=== PATIENT | male | born 1985 ===

== ENCOUNTER 2017-02-18 17:09 | Observation (INO) | payer SELFPAY ==
--- NOTE | 2017-02-18 17:34 | ED PDOC ---
HPI: Psych/Substance Abuse Time Seen by Provider: 02/18/17 17:16 Chief Complaint (Nursing): Alcohol Ingestion Chief Complaint (Provider): Alcohol Ingestion ED Caveat: Intoxicated History Per: Patient, EMS History/Exam Limitations: intoxication Suicide/Self Injury Attempted (Context): None Modifying Factor(s): Alcohol Additional Complaint(s): 31 year old brought in by EMS presents to ED due to alcohol intoxication and has an unknown past medical history. EMS states bystander called 911 after finding patient publicly intoxicated and unable to ambulate on his own. Patient admits to drinking and points to his head when ask about pain. PCP: Unknown Past Medical History Reviewed: Nursing Documentation, Vital Signs, Unable To Obtain Vital Signs: Last Vital Signs Temp 97.7 F 02/18/17 17:10 Pulse 77 02/18/17 17:10 Resp 18 02/18/17 17:10 BP 126/94 H 02/18/17 17:10 Pulse Ox 98 02/18/17 17:10 - Family History Family History: States: No Known Family Hx - Social History Alcohol: > 2 Drinks/Day - Allergies Allergies/Adverse Reactions: Allergies Allergy/AdvReac Type Severity Reaction Status Date / Time No Known Allergies Allergy Verified 02/18/17 17:10 Review of Systems Review Of Systems: ROS cannot be obtained secondary to pt's inabilty to answer questions. (due to alcohol intoxication) Physical Exam - Reviewed Nursing Documentation Reviewed: Yes Vital Signs Reviewed: Yes - Physical Exam Appears: Positive for: Non-toxic Neurologic/Psych: Negative for: Alert, Oriented - Laboratory Results Result Diagrams: 02/18/17 17:38 02/18/17 17:38 - ECG O2 Sat by Pulse Oximetry: 98 (RA) Pulse Ox Interpretation: Normal Medical Decision Making Medical Decision Makin Initial impression: alcohol intoxication, head injury Initial plan: * CT CERVICAL SPINE * CT HEAD * EtOH serum * Labs * UDrug screen * Finger stick * ED OBS ADMISSION Scribe Attestation: Documented by Maria L Medina, acting as a scribe for Miguelito De Paz PA-C. Provider Scribe Attestation: All medical record entries made by the Scribe were at my direction and personally dictated by me. I have reviewed the chart and agree that the record accurately reflects my personal performance of the history, physical exam, medical decision making, and the department course for this patient. I have also personally directed, reviewed, and agree with the discharge instructions and disposition. ED OBSERVATION Date of observation admission: 02/18/17 Time of observation admission: 17:25 - Observation admission statement Patient is being placed in observation because:: alcohol intoxication and CT - Goals of Observation Goals of observation are:: clinical sobriety and CT results - Progress Note Progress Note: 02/18/17 17:38 Accucheck: 103 02/18/17 18:52 CT HEAD FINDINGS HEMORRHAGE: No intracranial hemorrhage. BRAIN: No mass effect or edema. No atrophy or chronic microvascular ischemic changes. VENTRICLES: No hydrocephalus. CALVARIUM: Unremarkable. PARANASAL SINUSES: Unremarkable as visualized. No significant inflammatory changes. MASTOID AIR CELLS: Unremarkable as visualized. No inflammatory changes. OTHER FINDINGS: Partial opacification of the right external auditory canal, likely cerumen. IMPRESSION: No acute intracranial pathology identified. 02/18/17 18:55 CT CERVICAL FINDINGS VERTEBRAE: Vertebral bodies maintained in height. . Atlantoaxial articulation and odontoid process are intact. DISCS/SPINAL CANAL/NEURAL FORAMINA: No significant central canal or neural foraminal stenosis. Discs heights are grossly preserved. PARASPINAL SOFT TISSUES: Unremarkable. OTHER FINDINGS: None. IMPRESSION: No evidence of fracture or dislocation. Unremarkable examination. 02/18/17 20:05 Pt. sleeping. Easily arousable. 02/18/17 23:30 As per RN pt. c/o feeling shaky. On re-evaluation, pt. sleeping comfortably and easily arousable to verbal stimuli. Very mild tremors noted to arms. IV MVI, ativan 1mg IV ordered. Disposition - Clinical Impression Clinical Impression: Alcohol intoxication - Patient ED Disposition Is Patient to be Admitted: Transfer of Care (Signed out to Siena AHMADI pending sobriety and re-evaluation.) - Disposition Disposition Time: 17:25 Condition: STABLE - Pt Status Changed To: Hospital Disposition Of: Observation
[2017-02-18 17:42] LABS: BASO # 0.2 K/uL (0.0-0.2); BASO % 4.2 % (0.0-2.0); EOS # 0.1 K/uL (0.0-0.7); EOS % 2.4 % (0.0-4.0); HEMATOCRIT 37.4 % (35.0-51.0); LYMPH # 2.3 K/uL (1.0-4.3); LYMPH % 44.8 % (20.0-40.0); MEAN CELL VOLUME 103.4 fl (80.0-94.0); MEAN CORPUSCULAR HEMOGLOBIN 34.6 pg (27.0-31.0); MEAN CORPUSCULAR HGB CONC 33.5 g/dL (33.0-37.0); MEAN PLATELET VOLUME 6.7 fl (7.2-11.7); MONO # 0.3 K/uL (0.0-0.8); MONO % 6.3 % (0.0-10.0); NEUT # 2.2 K/uL (1.8-7.0); NEUT % 42.3 % (50.0-75.0); NRBC % 0.2 % (0.0-0.0); PLATELET COUNT 160 K/uL (130-400); RED CELL DISTRIBUTION WIDTH 12.7 % (11.5-14.5); WHITE BLOOD COUNT 5.2 K/uL (4.8-10.8)
[2017-02-18 18:01] LABS: ALB/GLOB RATIO 1.1 (1.0-2.1); ALKALINE PHOSPHATASE 161 U/L (38-126); ALT/SGPT 168 U/L (21-72); AST/SGOT 268 U/L (17-59); BILIRUBIN,TOTAL 0.5 mg/dl (0.2-1.3); BLOOD UREA NITROGEN 5 mg/dl (9-20); CALCIUM 8.6 mg/dL (8.4-10.2); CARBON DIOXIDE 24 mmol/L (22-30); CHLORIDE 106 mmol/L (98-107); GFR AFRICAN-AMERICAN > 60; GLUCOSE,RANDOM 106 mg/dL (75-110); POTASSIUM 3.9 MMOL/L (3.6-5.0); SODIUM 144 mmol/l (132-148); TOTAL PROTEIN 8.3 G/DL (6.3-8.2)
[2017-02-18 18:13] LABS: ALCOHOL SERUM 552 mg/dl (0-10)
--- NOTE | 2017-02-18 18:24 | CT ---
PROCEDURE: CT HEAD WITHOUT CONTRAST. HISTORY: possible trauma, headache COMPARISON: None available. TECHNIQUE: Axial computed tomography images were obtained through the head/brain without intravenous contrast. Radiation dose: Total exam DLP = 1122.44 mGy-cm. This CT exam was performed using one or more of the following dose reduction techniques: Automated exposure control, adjustment of the mA and/or kV according to patient size, and/or use of iterative reconstruction technique. FINDINGS: HEMORRHAGE: No intracranial hemorrhage. BRAIN: No mass effect or edema. No atrophy or chronic microvascular ischemic changes. VENTRICLES: No hydrocephalus. CALVARIUM: Unremarkable. PARANASAL SINUSES: Unremarkable as visualized. No significant inflammatory changes. MASTOID AIR CELLS: Unremarkable as visualized. No inflammatory changes. OTHER FINDINGS: Partial opacification of the right external auditory canal, likely cerumen. IMPRESSION: No acute intracranial pathology identified.
[2017-02-18 18:52] LABS: BASOPHIL 5 % (0-2); EOSINOPHIL 3 % (0-7); NEUTROPHIL 50 % (42-75); TOTAL CELLS COUNTED 100
[2017-02-18 18:54] LABS: ACANTHOCYTES SLIGHT
--- NOTE | 2017-02-18 18:54 | CT ---
PROCEDURE: CT Cervical Spine without contrast HISTORY: Possible fall COMPARISON: None available. TECHNIQUE: Axial computed tomography images were obtained of the cervical spine without the use of intravenous contrast. Coronal and sagittal reformatted images were created and reviewed. Radiation dose: Total exam DLP = 468.23 mGy-cm. This CT exam was performed using one or more of the following dose reduction techniques: Automated exposure control, adjustment of the mA and/or kV according to patient size, and/or use of iterative reconstruction technique. FINDINGS: VERTEBRAE: Vertebral bodies maintained in height. . Atlantoaxial articulation and odontoid process are intact. DISCS/SPINAL CANAL/NEURAL FORAMINA: No significant central canal or neural foraminal stenosis. Discs heights are grossly preserved. PARASPINAL SOFT TISSUES: Unremarkable. OTHER FINDINGS: None. IMPRESSION: No evidence of fracture or dislocation. Unremarkable examination.
[2017-02-18] MEDS ORDERED: Multivitamin (MVI) 10 ML, Thiamine 100 MG, Folic Acid 1 MG in Sodium Chloride 0.9% 1,00... IV ONE (23:29)
--- NOTE | 2017-02-19 00:55 | ED PDOC ---
- Laboratory Results Result Diagrams: 02/18/17 17:38 02/18/17 17:38 - ECG O2 Sat by Pulse Oximetry: 98 (RA) - Progress ED Course And Treament: Case endorsed to financial underwriter from Baldev AHMADI pending clinical sobriety 1:30 patient sleeping; no distress 2:30 Patient awake, librium dose given. 4:30 Patient awake, alert, oriented x3. Ambulating steady gait. No tremors noted. Vitals stable. Tolerated PO. Stable for discharge. Disposition - Clinical Impression Clinical Impression: Alcohol intoxication - POA Present On Arrival: None - Disposition Disposition: Routine/Home Disposition Time: 04:30 Condition: STABLE
[2017-02-19 03:05] VITALS: TEMP 98.4
[2017-02-19 04:36] VITALS: BP 118/68; PULSE 78; RESP 15
[2017-02-25 22:58] VITALS: O2SAT 98
== END 2017-02-19 05:40 | disposition home or self-care (01) ==
LOC: H.ER 17:09 → H.EROBSV 17:25
PROVIDERS: ADMIT Emergency Medicine; ATTEND Emergency Medicine
DX: F10.129 Alcohol abuse with intoxication, unspecified (principal); S09.90XA Unspecified injury of head, initial encounter; X58.XXXA Exposure to other specified factors, initial encounter; Y93.9 Activity, unspecified; Y92.9 Unspecified place or not applicable
CPT/HCPCS: 70450; 72125; 80053; 82948; 85025; 96374; 99284; G0378; G0480; J2060; J3411; J7040

== ENCOUNTER 2018-03-23 21:59 | Emergency (ER) | payer SELFPAY ==
[2018-03-23 22:17] VITALS: TEMP 98.3
--- NOTE | 2018-03-23 22:39 | ED PDOC ---
HPI: Psych/Substance Abuse Time Seen by Provider: 03/23/18 22:20 Chief Complaint (Nursing): Medical Clearance Chief Complaint (Provider): alcohol intoxication Involuntary Hold By: Local Law Enforcement Additional Complaint(s): 32yo man with no chronic medical conditions brought for clearance for incarceration. [employer] requesting clearance due to patient's recent intake of alcohol. He only complains of headache for about a week which resolves with tylenol. He denies focal weakness, nausea, numbness or difficulty with gait or speech. Otherwise offers no complaints. Admits to drinking 3 beers today. PMD None. Past Medical History Reviewed: Historical Data, Nursing Documentation, Vital Signs Vital Signs: Last Vital Signs Temp 98.3 F 03/23/18 22:15 Pulse 73 03/23/18 22:15 Resp 18 03/23/18 22:15 BP 128/80 03/23/18 22:15 Pulse Ox 100 03/23/18 22:15 - Medical History PMH: No Chronic Diseases - Surgical History Surgical History: No Surg Hx - Family History Family History: States: Unknown Family Hx - Social History Current smoker - smoking cessation education provided: Yes Alcohol: Social Drugs: Denies - Immunization History Hx Tetanus Toxoid Vaccination: No Hx Influenza Vaccination: No Hx Pneumococcal Vaccination: No - Home Medications Home Medications: Ambulatory Orders Medication Instructions Recorded RX: No Known Home Med 01/23/18 - Allergies Allergies/Adverse Reactions: Allergies Allergy/AdvReac Type Severity Reaction Status Date / Time No Known Allergies Allergy Verified 03/23/18 22:15 Review of Systems ROS Statement: Except As Marked, All Systems Reviewed And Found Negative Gastrointestinal: Positive for: Nausea Neurological: Positive for: Headache Physical Exam - Reviewed Nursing Documentation Reviewed: Yes Vital Signs Reviewed: Yes - Physical Exam Appears: Positive for: No Acute Distress Head Exam: Positive for: ATRAUMATIC, NORMOCEPHALIC Skin: Positive for: Warm, Dry Eye Exam: Positive for: EOMI, PERRL, Conjunctival injection Neck: Positive for: Painless ROM, Supple Cardiovascular/Chest: Positive for: Regular Rate, Rhythm. Negative for: Murmur Respiratory: Positive for: Normal Breath Sounds. Negative for: Respiratory Distress Gastrointestinal/Abdominal: Positive for: Soft. Negative for: Tenderness Back: Positive for: Normal Inspection. Negative for: Decreased ROM Extremity: Positive for: Normal ROM. Negative for: Deformity Lymphatic: Negative for: Adenopathy Neurologic/Psych: Positive for: Alert, Oriented. Negative for: Motor/Sensory Deficits - ECG O2 Sat by Pulse Oximetry: 100 - Progress ED Course And Treament: Evaluated by CW who psychiatrically cleared pt for incarceration Disposition - Clinical Impression Clinical Impression: Alcohol intoxication, Adjustment disorder - Disposition Disposition: Discharged/Transfer to Law Enforcement Disposition Time: 22:40 Condition: GOOD Additional Instructions: MEDICALLY AND PSYCHIATRICALLY STABLE FOR INCARCERATION Instructions: Alcohol Use - When Is Drinking a Problem? Forms: [facility] (Filipino) Print Language: TAIWANESE
[2018-03-24 00:21] VITALS: BP 127/85; PULSE 76; RESP 16
[2018-03-24 15:43] VITALS: O2SAT 100
== END 2018-03-24 00:35 | disposition home or self-care (01) ==
LOC: H.ER 21:59
DX: F10.129 Alcohol abuse with intoxication, unspecified (principal); F43.20 Adjustment disorder, unspecified; F17.200 Nicotine dependence, unspecified, uncomplicated